=== PATIENT | female | born 1995 | race American Indian/Alaskan Native ===

== ENCOUNTER 2020-05-31 16:11 | Emergency (ER) | payer SELFPAY ==
--- NOTE | 2020-05-31 16:56 | XRay Report ---
Right ankle 3 views INDICATION: Right ankle pain following injury IMPRESSION: Mild swelling along the lateral aspect of the right ankle. No fracture or subluxation is identified. Signer Name: Goldy Ivey MD Signed: 05/31/2020 4:51 PM Workstation Name: [id number]
[2020-05-31] MEDS ORDERED: ACETAMINOPHEN 325 MG TAB PO STA (18:32)
--- NOTE | 2020-05-31 18:32 | Emergency Department Report ---
ED Lower Extremity HPI - General Chief Complaint: Extremity Injury, Lower Stated Complaint: ANKLE SPRAIN Time Seen by Provider: 05/31/20 18:18 Source: patient, RN notes reviewed Mode of arrival: Ambulatory Limitations: No Limitations - History of Present Illness Initial Comments: The patient was evaluated in the emergency department for symptoms described in the history of present illness. He/she was evaluated in the context of the global COVID-19 pandemic, which necessitated consideration that the patient might be at risk for infection with the virus that causes COVID-19. Institutional protocols and algorithms that pertain to the evaluation of patients at risk for COVID-19 are in a state of rapid change based on information released by regulatory bodies including the CDC and federal and state organizations. These policies and algorithms were followed during the patient's care in the emergency department. Please note that these policies, procedures and recommendations changed on a rapid basis. The patient reports that she is not . The patient is a 25-year-old female who is not known to myself previously, who presents to the ER with a complaint of right ankle sprain. The patient states that she inverted her right ankle this past Sunday, while walking downstairs, in high heels. She describes sharp throbbing aching pain on the right lateral malleolus, which does not radiate anywhere, which increases with palpation and decreases with rest. She reports that she is allergic to NSAIDs, because they "cause my eyes to swell." She denies additional injuries, and she denies additional complaints. Complaint: ankle injury -: days(s) Injury: Ankle: Right Type of Injury: inversion Place: other Severity: moderate Improves With: rest Worsens With: movement, palpation Context: other (See history of present illness) Associated Symptoms: swelling, able to partially bear weight - Related Data Allergies Allergy/AdvReac Type Severity Reaction Status Date / Time ibuprofen Allergy Swelling Verified 05/31/20 16:24 ED Review of Systems ROS: Stated complaint: ANKLE SPRAIN Other details as noted in HPI Constitutional: denies: fever Cardiovascular: denies: chest pain Gastrointestinal: denies: abdominal pain Musculoskeletal: joint swelling, arthralgia, myalgia Neurological: denies: numbness, paresthesias, confusion ED Past Medical Hx - Past Medical History Previous Medical History?: No - Surgical History Past Surgical History?: No ED Physical Exam - General Limitations: No Limitations General appearance: alert, in no apparent distress - Head Head exam: Present: atraumatic, normocephalic - Eye Eye exam: Present: normal appearance, EOMI. Absent: nystagmus - ENT ENT exam: Present: normal exam, normal orophraynx, mucous membranes moist, n ormal external ear exam - Neck Neck exam: Present: normal inspection, full ROM. Absent: tenderness, meningismus - Respiratory Respiratory exam: Present: normal lung sounds bilaterally. Absent: respiratory distress, wheezes, rales, rhonchi, stridor - Cardiovascular Cardiovascular Exam: Present: regular rate, normal rhythm, normal heart sounds. Absent: bradycardia, tachycardia, irregular rhythm, systolic murmur, diastolic murmur, rubs, gallop - GI/Abdominal GI/Abdominal exam: Present: soft, normal bowel sounds. Absent: distended, tenderness, guarding, rebound, rigid, pulsatile mass - Extremities Exam Extremities exam: Present: normal inspection, full ROM, tenderness (There is right lateral malleolus tenderness. There is no foot tenderness.), normal capillary refill, other (Castro test is functional. 2+ pulses noted in the bilateral upper and lower extremities. There is no palpable cord. negative Homans sign. Muscular compartments are soft. The pelvis is stable.) - Back Exam Back exam: Present: normal inspection, full ROM. Absent: tenderness, CVA tenderness (R), CVA tenderness (L), paraspinal tenderness, vertebral tenderness - Neurological Exam Neurological exam: Present: alert, oriented X3, other (No facial droop. Tongue midline. Extraocular movements intact bilaterally. Facial sensation intact to light touch in V1, V2, V3 distribution bilaterally. 5 and a 5 strength in 4 extremities. Sensation intact to light touch in 4 extremities.). Absent: motor sensory deficit - Psychiatric Psychiatric exam: Present: normal affect, normal mood - Skin Skin exam: Present: warm, dry, intact, normal color. Absent: rash ED Lower Extremity MDM - Lab Data Vital signs: Blood pressure 122/81 Pulse 78/min Respirations: 18/min Temperature 98.7 F Saturating at 100% on room air. - Radiology Data Radiology results: report reviewed, image reviewed Print Report Referring Physician: ED DOC Patient Name: JITENDRA BRANCH Date of : 1995 Sex: Female Report Date: 2020-05-31 Report Status: Finalized Findings [facility] [address] [place] [address] XRay Report Signed Patient: JITENDRA BRANCH MR#: [id number] : 1995 Acct:[id number] Age/Sex: 25 / F ADM Date: 05/31/20 Loc: ED Attending Dr: Ordering Physician: YASMIN DÍAZ MD Date of Service: 05/31/20 Procedure(s): XR ankle 3+V RT Accession Number(s): [id number] cc: ED MD ARJUN Fluoro Time In Minutes: Right ankle 3 views INDICATION: Right ankle pain following injury IMPRESSION: Mild swelling along the lateral aspect of the right ankle. No fracture or subluxation is identified. Signer Name: Goldy Ivey MD Signed: 05/31/2020 4:51 PM Workstation Name: [id number] Transcribed By: BC Dictated By: Goldy Ivey MD Electronically Authenticated By: Goldy Ivey MD Signed Date/Time: 05/31/20 3161 - Medical Decision Making Differential diagnosis, including but not limited to: Sprain, strain, fracture, dislocation Assessment and plan: 25-year-old female who is 2 to 3 days status post right ankle inversion injury, with reproducible right lateral malleolus tenderness, otherwise, no significant tenderness or evidence of neurovascular deficits, able to ambulate, soft compartments, without evidence of fracture or dislocation on x-ray. We suspect ankle sprain. Weightbearing as tolerated, rest, ice, compression, elevation, acetaminophen, follow-up with outpatient primary care and/or orthopedics for initiation of physical therapy if symptoms do not improve. Patient counseled to wear athletic shoes with good support, and to avoid sandals, as well as high heels. Critical care attestation.: If time is entered above; I have spent that time in minutes in the direct care of this critically ill patient, excluding procedure time. ED Disposition Clinical Impression: Right ankle sprain Qualifiers: Encounter type: initial encounter Involved ligament of ankle: unspecified ligament Qualified Code(s): S93.401A - Sprain of unspecified ligament of right ankle, initial encounter Disposition: TO HOME OR SELFCARE Is pt being admited?: No Does the pt Need Aspirin: No Condition: Stable Instructions: Ankle Sprain (ED) Additional Instructions: Participate in weightbearing as tolerated. Avoid wearing sandals, as well as high heels. Wear athletic shoes with good ankle support, and use the right lower extremity splint as directed. Patient may take acetaminophen/Tylenol [id number], every 4-6 hours as needed for pain, maximum daily dose of Tylenol to not exceed 3 g per 24 hours. Patient may alternate ice packs and heat packs, rest, avoid heavy lifting and strenuous physical activity, and participate in physical activities as tolerated. We recommend follow-up with a primary care doctor or orthopedist in the next 2 weeks. If patient's pain does not improve, she may benefit from physical therapy, which would be coordinated by an outpatient primary care doctor or orthopedist. Referrals: LENNY PRATHER MD [Staff Physician] - 3-5 Days VIBHA GERARDO MD [Staff Physician] - 3-5 Days Forms: Work/School Release Form(ED)
[2020-05-31 19:28] VITALS: BP 122/81
== END 2020-05-31 19:35 | disposition home or self-care (01) ==
LOC: ED 16:11
DX: S93.401A Sprain of unspecified ligament of right ankle, initial encounter (principal); Z88.6 Allergy status to analgesic agent; X58.XXXA Exposure to other specified factors, initial encounter; Y93.89 Activity, other specified; Y92.89 Other specified places as the place of occurrence of the external cause; Y99.8 Other external cause status